=== PATIENT | male | born 1945 | race Caucasian/White ===

== ENCOUNTER 2017-02-24 09:08 | Outpatient (CLI) | payer MEDICARE, OTHER ==
[2017-02-24 11:04] LABS: #Basophils 0.1 thou/uL (0.0-0.2); #Eosinphils 0.2 thou/uL (0.0-0.7); #Lymphocytes 2.4 thou/uL (1.20-3.40); #Monocytes 0.6 thou/uL (0.11-0.59); #Neutrophils 4.9 thou/uL (1.40-6.50); %Basophils 1.5 % (0.0-1.0); %Eosinophils 2.8 % (0.0-10.0); %Lymphocytes 29.2 % (21.0-51.0); %Monocytes 7.1 % (0.0-10.0); %Neutrophils 59.5 % (42.0-75.0); Hemoglobin 13.2 g/dL (14.0-18.0); Mean Corpuscular HGB CONC 32.3 g/dL (32.0-36.0); Mean Corpuscular Hemoglobin 28.7 pg (27.0-31.0); Mean Corpuscular Volume 89.1 fl (80.0-94.0); Mean Platelet Volume 7.4 fL (7.4-10.4); Platelet Count 318 thou/uL (130-400); White Blood Cell (WBC) Count 8.2 thou/uL (4.8-10.8)
[2017-02-24 11:07] LABS: ALT (SGPT) 23 U/L (8-55); AST (SGOT) 16 U/L (5-34); Albumin 4.2 g/dL (3.4-4.8); Alkaline Phosphatase 48 U/L (40-150); Anion Gap 16 mmol/L (10-20); BUN (Urea Nitrogen) 34 mg/dL (8.4-25.7); Bilirubin, Total 0.3 mg/dL (0.2-1.2); Calc. Creatinine Clearance 0 mL/min (70-130); Calcium 9.9 mg/dL (7.8-10.44); Carbon Dioxide 23 mmol/L (23-31); Cardiac Risk 6.7 (Less than 4.5); Chloride 105 mmol/L (98-107); Cholesterol 167 mg/dl (< 200 Desired); Estimated GFR-MDRD 29; Globulin 2.9 g/dL (2.4-3.5); Glucose 240 mg/dL (83-110); HDL Cholesterol 25 mg/dL (>60 Neg Risk); LDL Cholesterol, Calculated 106 mg/dL; Potassium 4.4 mmol/L (3.5-5.1); Protein, Total 7.1 g/dL (5.8-8.1); Sodium 140 mmol/L (136-145); Triglycerides 180 mg/dL (Less than 150)
[2017-02-24 11:19] LABS: Free T4 (Free Thyroxine) 1.02 ng/dL (0.70-1.48)
[2017-02-24 11:30] LABS: Hemoglobin A1c 10.3 % (4.0-6.0)
== END 2017-02-24 09:09 | disposition home or self-care (01) ==
LOC: HPCALD 09:08
PROVIDERS: ATTEND Family Medicine
DX: E78.5 Hyperlipidemia, unspecified (principal); E11.9 Type 2 diabetes mellitus without complications; I10 Essential (primary) hypertension; E03.9 Hypothyroidism, unspecified
CPT/HCPCS: 36415; 80053; 80061; 83036; 84439; 84443; 84481; 85025

== ENCOUNTER 2017-09-28 10:59 | Outpatient (CLI) | payer MEDICARE, OTHER ==
[2017-09-28 17:11] LABS: Bilirubin Negative (Negative); Blood, Urine Negative (Negative); Clarity CLEAR (Clear); Glucose, Urine (Dipstick) Negative (Negative); Leukocyte Trace (Negative); Nitrite Negative (Negative); Protein, Urine (Dipstick) Negative (Neg-Trace); Specific Gravity, Urine 1.021 (1.002-1.036); Urobilinogen 0.2 mg/dL (0.2-1.0); pH, Urine 5.5 (5.0-9.0)
[2017-09-28 17:28] LABS: Hemoglobin 12.9 g/dL (14.0-18.0); Mean Corpuscular HGB CONC 31.2 g/dL (32.0-36.0); Mean Corpuscular Hemoglobin 28.5 pg (27.0-31.0); Mean Corpuscular Volume 91.4 fl (80.0-94.0); Mean Platelet Volume 8.1 fL (7.4-10.4); Platelet Count 302 thou/uL (130-400); RBC Distribution Width 14.4 % (11.5-14.5); Red Blood Cell (RBC) Count 4.51 mill/uL (4.70-6.10); White Blood Cell (WBC) Count 7.3 thou/uL (4.8-10.8)
[2017-09-28 17:29] LABS: Anion Gap 12 mmol/L (10-20); BUN (Urea Nitrogen) 24 mg/dL (8.4-25.7); Calc. Creatinine Clearance 0 mL/min (70-130); Calcium 9.7 mg/dL (7.8-10.44); Carbon Dioxide 24 mmol/L (23-31); Chloride 107 mmol/L (98-107); Estimated GFR-MDRD 42; Glucose 109 mg/dL (83-110); Phosphorus 3.3 mg/dL (2.3-4.7); Potassium 4.5 mmol/L (3.5-5.1); Sodium 138 mmol/L (136-145)
[2017-09-28 18:09] LABS: Creatinine, Urine 115.62 mg/dL (63-166)
--- NOTE | 2017-09-28 21:49 | ULT ---
BILATERAL RENAL ULTRASOUND 09/28/17 Ultrasonography of the kidneys was performed for evaluation of chronic kidney disease. The right kidney measures 10.8 x 5.2 x 4.8 cm. No solid mass or hydronephrosis was seen. There are tw o separate cysts, one measuring 3.3 cm in size and the other 1.3 cm. Both are reasonably hypoechoic a nd neither have blood flow within them. The left kidney measures 10.9 x 6.4 x 5.1 cm. It contains a 3.6 cm cyst with no flow within it. There is no mass or hydronephrosis on this side. The thickness of cortex is normal in each kidney. The cortical echogenicity was fairly normal bilater ally. No urine was seen in the urinary bladder, thus it was not well evaluated. IMPRESSION: Bilateral renal cysts with no other acute finding. POS: HOME
[2017-09-30 09:20] LABS: Antinuclear AB Negative (Negative)
== END 2017-09-28 11:00 | disposition home or self-care (01) ==
LOC: BURULT 10:59
PROVIDERS: ATTEND Internal Medicine Nephrology
DX: E11.22 Type 2 diabetes mellitus with diabetic chronic kidney disease (principal); N18.3 Chronic kidney disease, stage 3 (moderate); N28.1 Cyst of kidney, acquired; R80.9 Proteinuria, unspecified
CPT/HCPCS: 36415; 76770; 80048; 81003; 82306; 82570; 83970; 84100; 84156; 85027; 86038

== ENCOUNTER 2017-10-31 14:40 | Outpatient (CLI) | payer MEDICARE, OTHER ==
--- NOTE | 2017-10-31 20:36 | RAD ---
LUMBAR SPINE THREE VIEWS: Date: 10-31-17 Comparison: 03-25-15 FINDINGS: The L4-5 disc space is slightly narrowed, a new finding. The other disc spaces appear normal. No frac ture, dislocation, or acute bony change was seen. The SI joints appear normal. Some minor osteophytes are seen in the spine but are not excessive at all. Dense calcification of the abdominal aorta and i liac arteries are present as before. IMPRESSION: Mild degenerative changes. Perhaps slight disc space narrowing at L4-5. POS: HOME
== END 2017-10-31 14:41 | disposition home or self-care (01) ==
LOC: BURRAD 14:40
PROVIDERS: ATTEND Family Medicine
DX: M54.5 Low back pain (principal); M47.896 Other spondylosis, lumbar region; M48.061 Spinal stenosis, lumbar region without neurogenic claudication
CPT/HCPCS: 72100

== ENCOUNTER 2018-07-25 07:54 | Emergency (ER) | payer MEDICARE, OTHER | END 2018-07-25 08:24 | disposition home or self-care (01) | LOC: BURERS 07:54 | DX: R07.0 Pain in throat (principal) | CPT/HCPCS: 99283 ==

== ENCOUNTER 2021-05-17 18:20 | Emergency (ER) | payer MEDICARE, OTHER ==
[2021-05-17] MEDS ORDERED: Fentanyl 100 MCG/2 ML VIAL ONE ×2 (18:56→19:48)
[2021-05-17] MEDS ORDERED: Boostrix 0.5 ML (Tdap) VIAL ONE (18:57)
[2021-05-17] MEDS ORDERED: Ondansetron PF 4 MG/2 ML Vial ONE (18:57)
[2021-05-17] MEDS ORDERED: Ketorolac Tromethamine 30 MG/ML VIAL ONE (18:57)
[2021-05-17 19:05] LABS: ALT (SGPT) 16 U/L (8-55); AST (SGOT) 22 U/L (5-34); Albumin 3.3 g/dL (3.4-4.8); Alkaline Phosphatase 81 U/L (40-110); Anion Gap 21 mmol/L (10-20); BUN (Urea Nitrogen) 49 mg/dL (8.4-25.7); Bilirubin, Total 0.7 mg/dL (0.2-1.2); CK (CPK) 1186 U/L (30-200); Calc. Creatinine Clearance 0 mL/min (70-130); Calcium 9.1 mg/dL (7.8-10.44); Carbon Dioxide 15 mmol/L (23-31); Chloride 102 mmol/L (98-107); Globulin 2.9 g/dL (2.4-3.5); Glucose 248 mg/dL (83-110); Potassium 4.6 mmol/L (3.5-5.1); Protein, Total 6.2 g/dL (5.8-8.1); Sodium 133 mmol/L (136-145)
[2021-05-17 19:24] LABS: Hemoglobin 14.5 g/dL (14.0-18.0); Mean Corpuscular HGB CONC 31.6 g/dL (32.0-36.0); Mean Corpuscular Hemoglobin 28.3 pg (27.0-31.0); Mean Corpuscular Volume 89.4 fL (78.0-98.0); Platelet Count 435 thou/uL (130-400); RBC Distribution Width 15.3 % (11.5-14.5); Red Blood Cell (RBC) Count 5.11 mill/uL (4.70-6.10); White Blood Cell (WBC) Count 28.8 thou/uL (4.8-10.8)
[2021-05-17 20:09] LABS: Band 20 % (5-11); Lymphocytes 5 % (21-51); MDiff Complete? YES; Monocytes 6 % (0-10); Neutrophil 68 % (42-75); Platelet Morphology Comment Appears Increased; RBC Morphology Normal
[2021-05-17 20:14] LABS: Bicarbonate (HCO3v) 20.8 mmol/L (22.0-28.0); CO2 Tension (PvCO2) 40.6 mmHg (42.0-51.0); Calcium, Ionized 1.13 mmol/L (1.15-1.33); Chloride 101 mmol/L (98-107); Potassium 5.7 mmol/L (3.5-5.1); Sodium 134 mmol/L (138-145)
== END 2021-05-17 21:00 | disposition short-term general hospital (02) ==
LOC: BURERS 18:20
DX: T22.211A Burn of second degree of right forearm, initial encounter (principal); T22.212A Burn of second degree of left forearm, initial encounter; T24.202A Burn of second degree of unspecified site of left lower limb, except ankle and foot, initial encounter; T24.201A Burn of second degree of unspecified site of right lower limb, except ankle and foot, initial encounter; T21.22XA Burn of second degree of abdominal wall, initial encounter; T31.10 Burns involving 10-19% of body surface with 0% to 9% third degree burns; T31.0 Burns involving less than 10% of body surface; X08.8XXA Exposure to other specified smoke, fire and flames, initial encounter; N17.9 Acute kidney failure, unspecified; E86.0 Dehydration; E87.2 Acidosis; M62.82 Rhabdomyolysis; E11.9 Type 2 diabetes mellitus without complications; E78.5 Hyperlipidemia, unspecified; I10 Essential (primary) hypertension; Z87.891 Personal history of nicotine dependence; Z79.82 Long term (current) use of aspirin; Z79.899 Other long term (current) drug therapy
CPT/HCPCS: 36415; 51702; 80053; 82330; 82550; 82803; 83605; 84484; 85025; 90471; 90715; 93005; 94760; 96374; 96375; 96376; J1885; J2405; J3010

== ENCOUNTER 2021-08-13 14:07 | Emergency (ER) | payer MEDICARE, OTHER ==
[2021-08-13] MEDS ORDERED: Lidocaine 2% w/Epinephrine 1:200K 20 ML VIAL ONE (14:11)
[2021-08-13] MEDS ORDERED: Boostrix 0.5 ML (Tdap) VIAL ONE (14:33)
== END 2021-08-13 14:50 | disposition home or self-care (01) ==
LOC: BURERS 14:07
DX: S81.812A Laceration without foreign body, left lower leg, initial encounter (principal); W11.XXXA Fall on and from ladder, initial encounter; Z23 Encounter for immunization; I10 Essential (primary) hypertension; E11.9 Type 2 diabetes mellitus without complications; E78.5 Hyperlipidemia, unspecified; F17.200 Nicotine dependence, unspecified, uncomplicated
CPT/HCPCS: 12002; 90471; 90715

== ENCOUNTER 2021-08-14 14:14 | Emergency (ER) | payer MEDICARE, OTHER | END 2021-08-14 15:35 | disposition home or self-care (01) | LOC: BURERS 14:14 | DX: L76.22 Postprocedural hemorrhage of skin and subcutaneous tissue following other procedure (principal); I10 Essential (primary) hypertension; E11.9 Type 2 diabetes mellitus without complications; E78.5 Hyperlipidemia, unspecified; Z87.891 Personal history of nicotine dependence | CPT/HCPCS: 99283 ==

== ENCOUNTER 2021-09-22 08:49 | Emergency (ER) | payer MEDICARE, OTHER | END 2021-09-22 10:15 | disposition home or self-care (01) | LOC: BURERS 08:49 | DX: S91.332A Puncture wound without foreign body, left foot, initial encounter (principal); E11.9 Type 2 diabetes mellitus without complications; E78.5 Hyperlipidemia, unspecified; I10 Essential (primary) hypertension; Z87.891 Personal history of nicotine dependence | CPT/HCPCS: 99282 ==

== ENCOUNTER 2025-07-22 15:41 | Emergency (ER) | payer MEDICARE, OTHER | END 2025-07-22 17:07 | disposition home or self-care (01) | LOC: BURERS 15:41 | DX: E86.0 Dehydration (principal); R29.700 NIHSS score 0; E11.9 Type 2 diabetes mellitus without complications; I10 Essential (primary) hypertension; E78.5 Hyperlipidemia, unspecified; Z79.82 Long term (current) use of aspirin; Z79.899 Other long term (current) drug therapy | CPT/HCPCS: 99284 ==